=== PATIENT | female | born 1925 | race African-American/Black ===

== ENCOUNTER 2016-07-20 10:34 | Outpatient (CLI) | payer MEDICARE, OTHER ==
[2016-07-20 11:24] LABS: eGFR (African) > 60; eGFR (Non-African) > 60
== END 2016-07-20 10:35 ==
LOC: LAB 10:34
PROVIDERS: ATTEND Family Medicine
DX: E03.9 Hypothyroidism, unspecified (principal); E11.9 Type 2 diabetes mellitus without complications; I10 Essential (primary) hypertension
CPT/HCPCS: 36415; 80053; 80061; 83036; 84443

== ENCOUNTER 2017-01-23 10:13 | Outpatient (CLI) | payer MEDICARE, OTHER | END 2017-01-23 10:14 | LOC: LAB 10:13 | PROVIDERS: ATTEND Family Medicine | DX: E11.9 Type 2 diabetes mellitus without complications (principal) | CPT/HCPCS: 36415; 83036 ==

== ENCOUNTER 2017-01-29 12:19 | Day surgery (SDC) | payer MEDICARE, OTHER ==
[~2017-01-29 12:19] MED LIST: LACTATED RINGERS 1,000 ML IV.SOLN IV ONE; LIDOCAINE HCL/PF 2% 100 MG/5 ML VIAL IJ ONE; PROPOFOL 200 MG/20 ML VIAL IV ONE; SALINE FLUSH 10 ML DISP.SYRIN IVF ONE
--- NOTE | 2017-01-30 09:03 | GI Report ---
REFERRING PHYSICIAN: Dr. Peg Tee BILLBOARD INSTALLER: Anand Hernandez MD PROCEDURE MEDICATION: Propofol as per anesthesia. INDICATIONS: Patient is an 89-year-old woman who has had difficulty swallowing. She has had a large hiatal hernia. She had a stricture we dilated about 3-1/2 years ago. She is starting to have food catch on her again. PROCEDURE PERFORMED: Endoscopy with esophageal dilatation and biopsies. DESCRIPTION OF PROCEDURE: The Olympus video endoscope was passed through the esophagus. She has a short esophagus. The GE junction is about at 28 cm. There is a stricture there and esophagitis. She has a large hiatal hernia about 6 to 7 cm in size. 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 Pylorus, duodenal bulb, first and second part of the duodenum exam was normal. A guidewire was placed in the stomach. The endoscope was removed. Starting with a 14 mm and advancing to a 15 mm Savary-Evy dilator was passed through the guidewire without difficulty. The endoscope was reintroduced. There was a little bit of bleeding where the stricture was stretched. We also took biopsies at the GE junction where the stricture was to submit to pathology. The patient tolerated the procedure well. FINDINGS: 1. Esophageal stricture dilated to a 45-Turkmen. 2. Esophagitis, biopsied. 3. A very large hiatal hernia. RECOMMENDATIONS: 1. Again today, I would be on just kind of full liquid or soft diet. 2. She needs to keep her bed elevated about 3 or 4 inches up on boards or blocks. 3. She needs to continue on a PPI at least once a day before meals. 4. Avoid cold liquids with meals. 5. Take an antacid at bedtime. cc: [facility] Peg Tee [facility] [email or web address]
== END 2017-01-29 12:20 ==
LOC: OPSURG 12:19
PROVIDERS: ATTEND Internal Medicine Gastroenterology
DX: K21.0 Gastro-esophageal reflux disease with esophagitis (principal); K22.2 Esophageal obstruction; K44.9 Diaphragmatic hernia without obstruction or gangrene; R13.10 Dysphagia, unspecified
CPT/HCPCS: 43248; 88305; J2001; J2704; J7120; S1016